=== PATIENT | female | born 1995 | race Two or more races ===

== ENCOUNTER 2020-05-13 22:59 | Emergency (ER) | payer OTHER ==
[~2020-05-13] VITALS: Ht 157.5 cm; Wt 56.7 kg
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
--- NOTE | 2020-05-13 23:14 | NUR ---
URINE COLLECTED AND SENT TO LAB
--- NOTE | 2020-05-13 23:35 | NUR ---
PT TO CT VIA WHEELCHAIR.
--- NOTE | 2020-05-13 23:43 | NUR ---
PT RETURNED FROM CT TO BED 3.
[2020-05-14 00:20] VITALS: BP 115/75
[2020-05-14] MEDS ORDERED: IBUP-1953 PO (00:20)
== END 2020-05-14 00:37 | disposition home or self-care (01) ==
LOC: ER 23:03
DX: S09.8XXA Other specified injuries of head, initial encounter (principal); R51.9 Headache, unspecified; Z79.899 Other long term (current) drug therapy; W22.8XXA Striking against or struck by other objects, initial encounter; Y93.89 Activity, other specified; Y92.89 Other specified places as the place of occurrence of the external cause; Y99.8 Other external cause status
CPT/HCPCS: 70450-TC; 84703-TC

== ENCOUNTER 2023-10-24 22:11 | Emergency (ER) | payer OTHER ==
[~2023-10-24] VITALS: Ht 160 cm; Wt 68.0 kg
[~2023-10-24 22:11] MED LIST: IBUP-1953 PO
[2023-10-24 22:57] VITALS: TEMP 98.6
[2023-10-24] MEDS ORDERED: ONDANSETRON HCL/PF 4 MG/2 ML VIAL ONE (23:14)
[2023-10-24] MEDS: ONDANSETRON HCL/PF 4 MG/2 ML VIAL IVP ONE (23:28)
[2023-10-24] MEDS: IV NS 0.9% 1,000 ML BAG IV ONE (23:28)
[2023-10-24] MEDS: KETOROLAC TROMETHAMINE 15 MG/ML VIAL IV ONE (23:30)
[2023-10-24] MEDS: FAMOTIDINE/PF INJ 20 MG/2 ML VIAL IV ONE (23:30)
[2023-10-24] MEDS ORDERED: FAMOTIDINE/PF INJ 20 MG/2 ML VIAL IV ONE (23:32)
[2023-10-24 23:37] LABS: BASOPHILS # (AUTO) 0.1 K/uL (0.0-0.2); BASOPHILS % (AUTO) 0.6 % (0.0-2.0); EOSINOPHILS % (AUTO) 0.1 % (0.0-6.0); HEMATOCRIT 39 % (33-45); HEMOGLOBIN 13.2 g/dL (11.5-14.8); LYMPHOCYTES # (AUTO) 1.2 K/uL (0.8-4.8); LYMPHOCYTES % (AUTO) 11.7 % (20.0-44.0); MEAN CORPUSCULAR HEMOGLOBIN 29 PG (26.0-33.0); MEAN CORPUSCULAR HGB CONC 34 g/dl (31.0-36.0); MEAN CORPUSCULAR VOLUME 88 fL (82-100); MONOCYTES # (AUTO) 0.5 K/uL (0.1-1.30); NEUTROPHILS # (AUTO) 8.2 K/uL (1.8-8.9); NEUTROPHILS % (AUTO) 82.6 % (43.0-81.0); PLATELET COUNT (AUTO) 258 K/uL (150-450); RED BLOOD CELL COUNT(AUTO) 4.48 MIL/uL (4.0-5.2); RED CELL DISTRIBUTION WIDTH 13.1 % (11.5-15.0); WHITE BLOOD COUNT (AUTO) 9.9 K/uL (4.3-11.0)
[2023-10-24 23:38] LABS: APPEARANCE,URINE CLEAR (CLEAR); BILIRUBIN,URINE NEGATIVE (NEGATIVE); BLOOD, URINE TRACE-INTA Ery/uL (NEGATIVE); COLOR,URINE YELLOW (YELLOW); KETONES,URINE 2+ mg/dL (NEGATIVE); LEUKOCYTE ESTERASE ,URINE NEGATIVE (NEGATIVE); NITRITE, URINE NEGATIVE (NEGATIVE); PROTEIN,URINE NEGATIVE (NEGATIVE); UGLUCOSE NEGATIVE (NEGATIVE); UROBILINOGEN,URINE 0.2 EU/dL (0.2)
[2023-10-24 23:40] LABS: ADD URINE CULTURE NO; BACTERIA,URINE Rare /HPF (None Seen); PREGNANCY TEST URINE QUAL NEGATIVE (NEGATIVE); SQUAMOUS EPITHELIAL CELL,UR Few /HPF (None Seen); WBC,URINE 0-2 /HPF (0-3)
[2023-10-24 23:55] LABS: CALCIUM, SERUM 9.2 mg/dL (8.5-10.1); CREATININE 0.7 mg/dL (0.6-1.3); POTASSIUM 3.6 mmol/L (3.5-5.1)
[2023-10-25] MEDS ORDERED: KETOROLAC TROMETHAMINE 15 MG/ML VIAL ONE
[2023-10-25 00:01] LABS: ALBUMIN 3.5 g/dL (3.4-5.0); BILIRUBIN,DIRECT 0.1 mg/dL (0.0-0.2); BILIRUBIN,TOTAL 0.5 mg/dL (0.2-1.0); TOTAL PROTEIN, SERUM 7.6 g/dL (6.4-8.2)
[2023-10-25] MEDS ORDERED: CT SWABBABLE VALVE TRANS SET 1 EA INFUS.SET MC ONE (00:13)
[2023-10-25] MEDS ORDERED: IV NS 0.9% 250 ML IV ONE (00:13)
[2023-10-25] MEDS ORDERED: IOHEXOL-300 100 ML VIAL IV ONE (00:13)
[2023-10-25] MEDS ORDERED: ONDA4TAB5 PO (00:57)
[2023-10-25 01:05] VITALS: BP 119/74; O2SAT 98
== END 2023-10-25 01:07 | disposition home or self-care (01) ==
LOC: ER 22:17
DX: R11.2 Nausea with vomiting, unspecified (principal); R10.13 Epigastric pain
CPT/HCPCS: 99285; 74177; 96374; 96375; 96361; 85025; 80048; 83690; 80076; 84703; 81001; 36415; J3490; J2405; J7030; J7050; Q9967; J1885